=== PATIENT | male | born 1980 | race Caucasian/White ===

== ENCOUNTER 2023-06-19 01:24 | Emergency (ER) | payer MEDICAID ==
[~2023-06-19] VITALS: Ht 177.8 cm; Wt 89.8 kg
[2023-06-19 01:29] VITALS: BP_SYST 160; PULSE 102; RESP 17; TEMP 99; O2SAT 95
[2023-06-19] MEDS ORDERED: AUG875 PO (01:43)
== END 2023-06-19 01:48 | disposition home or self-care (01) ==
LOC: SED 01:24
DX: S71.132A Puncture wound without foreign body, left thigh, initial encounter (principal); R03.0 Elevated blood-pressure reading, without diagnosis of hypertension; Z79.899 Other long term (current) drug therapy; W54.0XXA Bitten by dog, initial encounter; Y93.89 Activity, other specified; Y92.89 Other specified places as the place of occurrence of the external cause; Y99.8 Other external cause status
CPT/HCPCS: 99283